=== PATIENT | male | born 1980 | race Caucasian/White ===

== ENCOUNTER 2024-12-17 14:52 | Emergency (ER) | payer MEDICAID, OTHER ==
[~2024-12-17] VITALS: Ht 177.8 cm; Wt 70.3 kg
[2024-12-17 15:26] VITALS: BP 131/77; O2SAT 99
[2024-12-17] MEDS ORDERED: ACETAMINOPHEN ES 500 MG TABLET ONE (16:02)
[2024-12-17] MEDS ORDERED: NAPROXEN 250 MG TABLET ONE (16:03)
[2024-12-17] MEDS ORDERED: ACET-2605 PO (16:04)
[2024-12-17] MEDS ORDERED: BENZ-13 PO (16:04)
[2024-12-17] MEDS ORDERED: NAPR-1009 PO (16:04)
[2024-12-17 16:35] VITALS: TEMP 99.9
[2024-12-17] MEDS: NAPROXEN 250 MG TABLET PO ONE (16:35)
[2024-12-17] MEDS: ACETAMINOPHEN ES 500 MG TABLET PO ONE (16:35)
== END 2024-12-17 16:35 | disposition home or self-care (01) ==
LOC: ER 15:06
DX: B34.9 Viral infection, unspecified (principal); M54.9 Dorsalgia, unspecified; R05.9 Cough, unspecified; R06.02 Shortness of breath; R09.81 Nasal congestion; R25.2 Cramp and spasm